=== PATIENT | male | born 1985 | race Two or more races ===

== ENCOUNTER 2024-07-11 10:51 | Emergency (ER) | payer BC ==
[~2024-07-11] VITALS: Ht 172.7 cm; Wt 74.8 kg
[2024-07-11] MEDS ORDERED: NOVOLOG100 UNIT/1 SQ (11:31)
[2024-07-11] MEDS ORDERED: FAMOtidine 10 MG/ML (4ML VIAL) IV ONE (11:45)
[2024-07-11] MEDS ORDERED: 0.9 % SODIUM CHLORIDE 1,000 ML IV ONE (11:45)
[2024-07-11 12:38] LABS: INR 1.08; PROTHROMBIN TIME 11.7 SECONDS (9.0-11.5)
[2024-07-11 12:40] LABS: FIBRINOGEN 262 mg/dL (187.0-446.0); PARTIAL THROMBOPLASTIN TIME 24.9 SECONDS (22.0-34.0)
[2024-07-11 12:45] LABS: BILIRUBIN TOTAL 1.72 mg/dL (0.3-1.2); CALCIUM 8.9 mg/dL (8.5-10.1); CREATININE SERUM 0.8 mg/dL (0.70-1.30); GFR 107.06; GLOBULINA 3.4 G/DL (2.4-3.5); POTASSIUM 4.11 mEq/L (3.5-5.1); TOTAL PROTEIN 7.4 gm/dL (6.4-8.2)
[2024-07-11 12:51] LABS: D DIMER < 0.19 MG/L
[2024-07-11 13:30] LABS: HEMATOCRIT 47.5 % (39.0-48.0); HEMOGLOBIN 16.8 g/dL (13-16.00); MEAN CELL VOLUME 99.9 fL (80.0-100.00); MEAN CORPUSCULAR HEMOGLOBIN 35.4 pg (27.00-32.0); MEAN CORPUSCULAR HGB CONC 35.5 g/dl (32.0-36.0); PLATELET COUNT 240 K/uL (150-450); RED BLOOD COUNT 4.75 M/uL (4.00-6.00); RED CELL DISTRIBUTION WIDTH 12.4 % (11.5-14.5)
[2024-07-11 13:38] LABS: PH,URINE 5.5 (5.0-8.0); URINE APPEARANCE Clear; URINE BILIRRUBIN Negative (NEGATIVE); URINE BLOOD Negative; URINE COLOR Yellow; URINE LEUKOCYTE Negative; URINE NITRATE Negative; URINE PROTEIN Trace (NEGATIVE)
[2024-07-11 13:42] LABS: URINE BACTERIA 23.9 uL (0.0-1933); URINE EPITHELIAL CELLS 4.7 uL (0.0-38.8)
[2024-07-11 13:48] LABS: URINE GLUCOSE >=1000 MG/DL (NEGATIVE); URINE KETONE >=160 (NEGATIVE); URINE RBC 1.8 uL (0.0-20.8)
[2024-07-11 14:04] LABS: COCAINE NEGATIVE (NEGATIVE); METHADONE NEGATIVE (NEGATIVE); OPIATES NEGATIVE (NEGATIVE); THC ( Cannabinoids) NEGATIVE (NEGATIVE)
[2024-07-11] MEDS ORDERED: INSULIN REGULAR, HUMAN 1,000 UNIT/10 ML UNITS SUBCUTANEO ONE ×2 (15:00→17:15)
== END 2024-07-11 18:16 | disposition home or self-care (01) ==
LOC: ER 10:51
PROVIDERS: General Practice
DX: E11.9 Type 2 diabetes mellitus without complications (principal); Z79.4 Long term (current) use of insulin; I10 Essential (primary) hypertension